=== PATIENT | female | born 1940 | race Caucasian/White ===

== ENCOUNTER 2017-07-01 18:01 | Emergency (ER) | payer MEDICARE, OTHER ==
[~2017-07-01] VITALS: Ht 167.6 cm; Wt 63.5 kg
[~2017-07-01 18:01] MED LIST: ATOR10TA; ENAL20TA70; ESOM40CA39; LEVO75TA50; METO25TA3; MULT-228; NORVASC
[2017-07-01 20:50] VITALS: BP 115/59
[2017-07-01] MEDS ORDERED: BACITRACIN TOP OINT 1 UD PKG TOP ONE (21:30)
== END 2017-07-01 23:12 | disposition home or self-care (01) ==
LOC: ER 18:01
DX: S02.2XXA Fracture of nasal bones, initial encounter for closed fracture (principal); S16.1XXA Strain of muscle, fascia and tendon at neck level, initial encounter; S60.221A Contusion of right hand, initial encounter; E78.5 Hyperlipidemia, unspecified; I10 Essential (primary) hypertension; Z88.8 Allergy status to other drugs, medicaments and biological substances; Z88.1 Allergy status to other antibiotic agents; W18.39XA Other fall on same level, initial encounter; Y93.89 Activity, other specified; Y92.098 Other place in other non-institutional residence as the place of occurrence of the external cause; Y99.8 Other external cause status
CPT/HCPCS: 70160; 70450; 72125; 73130

== ENCOUNTER 2019-04-01 21:38 | Emergency (ER) | payer OTHER ==
[~2019-04-01] VITALS: Ht 167.6 cm; Wt 68.0 kg
[~2019-04-01 21:38] MED LIST changes: +ENAL20TA; -ENAL20TA70; -METO25TA3; +METO25TA36
[2019-04-01] MEDS ORDERED: IBUPROFEN 600 MG TAB PO ONE (22:00)
[2019-04-01 23:27] VITALS: BP 102/34
[2019-04-04] MEDS ORDERED: AMLO10TA13 PO (10:14)
[2019-04-04] MEDS ORDERED: MULT1CAP25 PO (10:14)
[2019-04-04] MEDS ORDERED: CYAN1TAB14 PO (10:14)
[2019-04-04] MEDS ORDERED: ASPI-404 PO (10:14)
[2019-04-04] MEDS ORDERED: CITA-77 PO (10:14)
[2019-04-04] MEDS ORDERED: CALC-337 PO (10:14)
== END 2019-04-02 00:20 | disposition home or self-care (01) ==
LOC: ER 21:45
DX: S52.571A Other intraarticular fracture of lower end of right radius, initial encounter for closed fracture (principal); E78.5 Hyperlipidemia, unspecified; I10 Essential (primary) hypertension; Z88.2 Allergy status to sulfonamides; Z88.6 Allergy status to analgesic agent; Z79.899 Other long term (current) drug therapy; W19.XXXA Unspecified fall, initial encounter; Y93.89 Activity, other specified; Y92.098 Other place in other non-institutional residence as the place of occurrence of the external cause; Y99.8 Other external cause status
CPT/HCPCS: 29125; 73110

== ENCOUNTER 2019-04-07 05:56 | Day surgery (SDC) | payer OTHER ==
[2019-04-04 11:09] LABS: Basophils # (auto) 0 uL; Eosinophils # (auto) 0.2 uL; Lymphocytes # (auto) 1.5 uL; Mean Corpuscular Volume 102.2 fL (80.0-100.0); Monocytes # (auto) 1.1 uL
[2019-04-04 11:12] LABS: Basophils % (auto) 0.5 % (0.0-2.0); Eosinophils % (auto) 2.2 % (0.0-7.0); Hematocrit 44.3 % (36.0-46.0); Hemoglobin 14.9 g/dL (12.2-16.2); Lymphocytes % (auto) 19.8 % (10.0-50.0); Mean Corpuscular Hemoglobin 34.4 pg (28.0-32.0); Mean Corpuscular Hgb Conc. 33.7 g/dL (32.0-36.0); Monocytes % (auto) 15.4 % (0.0-12.0); Neutrophils # (auto) 4.7 uL; Neutrophils % (auto) 62.1 % (37.0-80.0); Platelet Count (auto) 166 10^3/uL (140-450); Red Blood Cells 4.33 10^6/uL (4.0-5.20); Red Cell Distribution Width 13.2 % (11.8-14.3); White Blood Cell 7.5 10^3/uL (4.4-10.8)
[2019-04-04 11:23] LABS: INR < 0.93 (0.9-1.15); Partial Thromboplastin Time 25.8 sec (23.64-32.05)
[2019-04-04 11:24] LABS: Potassium 4.2 mmol/L (3.5-5.1)
[2019-04-04 11:32] LABS: Albumin 3.8 g/dL (3.4-5.0); BUN/Creatinine Ratio 18.4; Bilirubin, Total 0.8 mg/dL (0.2-1.0); Calcium 9.9 mg/dL (8.5-10.1); Total Protein 7.5 g/dL (6.4-8.2)
[2019-04-05 08:55] LABS: Urine Bacteria NONE SEEN /hpf (None Seen); Urine Blood Negative /uL (Negative); Urine WBC 2 /hpf (0 - 5)
[~2019-04-07] VITALS: Ht 167.6 cm; Wt 68.0 kg
[~2019-04-07 05:56] MED LIST changes: +AMLO10TA13 PO; +ASPI-404 PO; +CALC-337 PO; +CITA-77 PO; +CYAN1TAB14 PO; -ESOM40CA39; -MULT-228; +MULT1CAP25 PO; -NORVASC
[2019-04-07] MEDS ORDERED: CLINDAMYCIN 600MG IV 50 ML IV ONE (06:46)
[2019-04-07] MEDS ORDERED: ePHEDrine SULFATE 50 MG/ML AMP IV PRN (07:30)
[2019-04-07] MEDS ORDERED: MIDAZOLAM HCL 1MG/1ML-2 ML VIAL IV PRN (07:30)
[2019-04-07] MEDS ORDERED: LABETALOL HCL 5 MG/ML 4ML SYRINGE IV PRN (07:30)
[2019-04-07] MEDS ORDERED: ONDANSETRON HCL 4 MG/2 ML VIAL IV PRN (07:30)
[2019-04-07] MEDS ORDERED: KETOROLAC TROMETH 30 MG/ML 1ML VIAL IV ONE (07:30)
[2019-04-07] MEDS ORDERED: MORPHINE SULFATE 4 MG/ML SYR/VIAL IV PRN (07:30)
[2019-04-07] MEDS ORDERED: MIDAZOLAM HCL 1MG/1ML-2 ML VIAL ONE (07:35)
[2019-04-07] MEDS ORDERED: fentaNYL CITRATE 100 MCG/2 ML VL ONE (07:35)
[2019-04-07] MEDS ORDERED: MEPERIDINE HCL (25 MG/ML) 1ML VIAL ONE (07:35)
[2019-04-07] MEDS ORDERED: PROPOFOL 10 MG/ML 20 ML IV ONE (07:43)
[2019-04-07] MEDS ORDERED: DexAMETHasone SOD PHOS 10MG/1ML VIAL INJ ONE (07:43)
[2019-04-07] MEDS ORDERED: KETOROLAC TROMETH 30 MG/ML 1ML VIAL ONE (07:59)
[2019-04-07] MEDS ORDERED: BACITRACIN TOP OINT 1 UD PKG TOP ONE (08:33)
[2019-04-07 09:51] VITALS: BP 125/41
== END 2019-04-07 10:03 | disposition home or self-care (01) ==
LOC: SUR 05:56
PROVIDERS: ATTEND Orthopaedic Surgery
DX: S52.531D Colles' fracture of right radius, subsequent encounter for closed fracture with routine healing (principal); S52.611D Displaced fracture of right ulna styloid process, subsequent encounter for closed fracture with routine healing; I10 Essential (primary) hypertension; E07.9 Disorder of thyroid, unspecified; Z90.710 Acquired absence of both cervix and uterus; Z88.2 Allergy status to sulfonamides; Z88.8 Allergy status to other drugs, medicaments and biological substances; Z79.899 Other long term (current) drug therapy; Z98.890 Other specified postprocedural states; Z79.82 Long term (current) use of aspirin; Z79.01 Long term (current) use of anticoagulants; X58.XXXD Exposure to other specified factors, subsequent encounter
CPT/HCPCS: 25607; 36415; 73100; 80053; 81001; 85025; 85610; 85730; C1713; J1100; J1885; J2175; J2250; J2704; J3010; J3490; 76000

== ENCOUNTER 2019-06-05 08:19 | Emergency (ER) | payer OTHER ==
[~2019-06-05] VITALS: Ht 170.2 cm; Wt 63.5 kg
[2019-06-05 09:03] VITALS: BP 120/59
[2019-06-05] MEDS ORDERED: FEXOFENADINE HCL 60 MG TAB PO ONE (10:00)
[2019-06-05] MEDS ORDERED: DexAMETHasone SOD PHOS 10MG/1ML VIAL INJ IM ONE (10:00)
== END 2019-06-05 10:44 | disposition home or self-care (01) ==
LOC: ER 08:23
DX: L23.9 Allergic contact dermatitis, unspecified cause (principal); E78.5 Hyperlipidemia, unspecified; I10 Essential (primary) hypertension; Z88.2 Allergy status to sulfonamides; Z88.8 Allergy status to other drugs, medicaments and biological substances; Z79.899 Other long term (current) drug therapy
CPT/HCPCS: 96372; 99283; J1100

== ENCOUNTER 2021-12-23 20:35 | Inpatient (IN) | payer OTHER ==
[~2021-12-23] VITALS: Ht 170.2 cm; Wt 77.0 kg
[~2021-12-23 20:35] MED LIST changes: +AMLO-496 PO; -AMLO10TA13 PO; -ASPI-404 PO; +ASPI-543 PO; -ENAL20TA; +ENAL20TA8; +LEV75T; -LEVO75TA50
[2021-12-23] MEDS ORDERED: ATROPINE SULF 1 MG/10ml SYR IV ONE (22:00)
[2021-12-23] MEDS ORDERED: ATROPINE SULF 0.5 MG/5ML SYR ONE (22:06)
[2021-12-23] MEDS ORDERED: ATROPINE SULFATE 1 MG/1 ML VIAL ONE (22:07)
[2021-12-23 22:30] LABS: Basophils # (auto) 0 10 ^3/uL (0-0.2); Basophils % (auto) 0.4 % (0.0-2.0); Eosinophils # (auto) 0.1 10 ^3/uL (0-0.8); Eosinophils % (auto) 1.2 % (0.0-7.0); Hematocrit 44.3 % (36.0-46.0); Hemoglobin 15.1 g/dL (12.2-16.2); Lymphocytes # (auto) 1.5 10 ^3/uL (0.4-5.4); Lymphocytes % (auto) 15.4 % (10.0-50.0); Mean Corpuscular Volume 91.2 fL (80.0-100.0); Monocytes # (auto) 1.3 10 ^3/uL (0-1.3); Monocytes % (auto) 13.7 % (0.0-12.0); Neutrophils # (auto) 6.8 10 ^3/uL (1.6-8.6); Neutrophils % (auto) 69.3 % (37.0-80.0); Red Blood Cells 4.86 10^6/uL (4.0-5.20); Red Cell Distribution Width 14.3 % (11.8-14.3); White Blood Cell 9.8 10^3/uL (4.4-10.8)
[2021-12-23 22:48] LABS: Albumin 3.2 g/dL (3.4-5.0); BUN/Creatinine Ratio 20.4; Calcium 9.4 mg/dL (8.5-10.1); Magnesium 2.2 mg/dL (1.6-2.6)
[2021-12-23 22:50] LABS: Bilirubin, Total 0.4 mg/dL (0.2-1.0)
[2021-12-24] MEDS ORDERED: ATROPINE SULF 1 MG/10ml SYR IV ONE ×2 (02:45→07:15)
[2021-12-24] MEDS ORDERED: ATROPINE SULFATE 1 MG/1 ML VIAL ONE (02:59)
[2021-12-24 05:03] LABS: Urine Bacteria NONE SEEN /hpf (None Seen); Urine Blood Negative /uL (Negative); Urine Hyaline Cast FEW /lpf (0 - 2); Urine Specific Gravity 1.019 (1.001-1.035); Urine WBC <1 /hpf (0 - 5)
[2021-12-24] MEDS ORDERED: ACETAMINOPHEN 325 MG TAB PO PRN (06:00)
[2021-12-24] MEDS ORDERED: NITROGLYCERIN 0.4 MG SL TAB SL PRN (06:00)
[2021-12-24] MEDS ORDERED: ONDANSETRON HCL 4 MG/2 ML VIAL IV PRN (06:00)
[2021-12-24] MEDS ORDERED: HYDROcodone-ACET 5/325MG TAB PO PRN (06:00)
[2021-12-24] MEDS ORDERED: MORPHINE SULFATE INJ 2 MG/ml SYRG IV PRN (06:00)
[2021-12-24] MEDS ORDERED: GLUCAGON HYDROCHLORIDE (RDNA) 1 MG VIAL IV ONE (06:00)
[2021-12-24] MEDS: LEVOTHYROXINE SODIUM 88 MCG TAB PO SCH (08:30)
[2021-12-24] MEDS: PANTOPRAZOLE 40 MG TAB PO SCH (11:52)
[2021-12-24] MEDS: amLODIPine BESYLATE 5 MG TAB PO SCH (11:57)
[2021-12-24] MEDS: ENOXAPARIN SOD 40 MG/0.4 ML SYRINGE SC SCH (11:58)
[2021-12-24] MEDS: LORazepam 2MG/ML-1ML VIAL IV PRN ×2 (16:51→21:45)
[2021-12-24] MEDS: ATORVASTATIN 20 MG TAB PO SCH (22:00)
[2021-12-25 04:56] LABS: Basophils # (auto) 0 10 ^3/uL (0-0.2); Basophils % (auto) 0.6 % (0.0-2.0); Eosinophils # (auto) 0.2 10 ^3/uL (0-0.8); Eosinophils % (auto) 2.3 % (0.0-7.0); Hematocrit 42.9 % (36.0-46.0); Hemoglobin 14.3 g/dL (12.2-16.2); Lymphocytes # (auto) 1.8 10 ^3/uL (0.4-5.4); Lymphocytes % (auto) 22.8 % (10.0-50.0); Mean Corpuscular Hemoglobin 31.1 pg (28.0-32.0); Mean Corpuscular Hgb Conc. 33.5 g/dL (32.0-36.0); Mean Corpuscular Volume 92.8 fL (80.0-100.0); Monocytes # (auto) 1.2 10 ^3/uL (0-1.3); Monocytes % (auto) 14.9 % (0.0-12.0); Neutrophils # (auto) 4.7 10 ^3/uL (1.6-8.6); Neutrophils % (auto) 59.4 % (37.0-80.0); Nucleated Red Blood Cells % 0.1 %; Red Blood Cells 4.62 10^6/uL (4.0-5.20); Red Cell Distribution Width 14.5 % (11.8-14.3)
[2021-12-25 05:33] LABS: Albumin 3.3 g/dL (3.4-5.0); BUN/Creatinine Ratio 17.9; Calcium 9.5 mg/dL (8.5-10.1); Potassium 4.6 mmol/L (3.5-5.1)
[2021-12-25] MEDS: LEVOTHYROXINE SODIUM 88 MCG TAB PO SCH (07:00)
[2021-12-25 07:04] LABS: Total Protein 6.7 g/dL (6.4-8.2)
[2021-12-25] MEDS: amLODIPine BESYLATE 5 MG TAB PO SCH (10:00)
[2021-12-25] MEDS: PANTOPRAZOLE 40 MG TAB PO SCH (10:15)
[2021-12-25] MEDS: ENOXAPARIN SOD 40 MG/0.4 ML SYRINGE SC SCH (10:16)
[2021-12-25 12:07] LABS: INR 0.99 (0.9-1.15); Partial Thromboplastin Time 29.9 sec (23.6-33.0)
[2021-12-25] MEDS ORDERED: LIDOCAINE 2%HCL (LOCAL ANESTH.) INJ 10ml MDV ONE (15:43)
[2021-12-25] MEDS ORDERED: VANCOMYCIN HCL 1000 MG VL ONE (15:44)
[2021-12-25] MEDS ORDERED: fentaNYL CITRATE 100 MCG/2 ML VL ONE (15:45)
[2021-12-25] MEDS ORDERED: MIDAZOLAM HCL 2MG/2ML 2ml VIAL (1mg/ml) ONE (15:45)
[2021-12-25] MEDS ORDERED: VANCOMYCIN 1GM/250ML 250 ML IV ONE (15:46)
[2021-12-25 22:00] VITALS: BP 179/70
[2021-12-25] MEDS: ATORVASTATIN 20 MG TAB PO SCH (22:41)
[2021-12-25] MEDS: MORPHINE SULFATE INJ 2 MG/ml SYRG IV PRN (22:42)
[2021-12-26] MEDS: LEVOTHYROXINE SODIUM 88 MCG TAB PO SCH (05:45)
[2021-12-26] MEDS: VANCOMYCIN 1GM/250ML 250 ML IV SCH ×2 (05:45→09:39)
[2021-12-26 06:46] VITALS: BP 102/51
[2021-12-26 08:00] VITALS: BP 158/69
[2021-12-26 09:00] VITALS: BP 158/69
[2021-12-26] MEDS: amLODIPine BESYLATE 5 MG TAB PO SCH (09:40)
[2021-12-26] MEDS ORDERED: TRAM-711 PO (10:30)
[2021-12-26] MEDS: LORazepam 2MG/ML-1ML VIAL IV PRN (11:27)
[2021-12-26] MEDS: MORPHINE SULFATE INJ 2 MG/ml SYRG IV PRN (11:27)
[2021-12-26 12:00] VITALS: BP 128/56
[2021-12-26 13:00] VITALS: BP 128/56
[2021-12-26 14:42] VITALS: BP 128/56
[2021-12-26] MEDS ORDERED: ALPR1TAB2 PO (14:44)
== END 2021-12-26 16:47 | disposition home or self-care (01) | DRG 242 ==
LOC: EDBD 20:35 → ER 20:39 → TELE 12-24 05:48 → TELE-WESTW 12-25 12:36
PROVIDERS: ADMIT Nurse Practitioner; ATTEND Family Medicine
PROC: 0JH606Z Insertion of Pacemaker, Dual Chamber into Chest Subcutaneous Tissue and Fascia, Open Approach (ICD-10-PCS; principal; 2021-12-25)
PROC: 02HK3JZ Insertion of Pacemaker Lead into Right Ventricle, Percutaneous Approach (ICD-10-PCS; 2021-12-25)
PROC: 02H63JZ Insertion of Pacemaker Lead into Right Atrium, Percutaneous Approach (ICD-10-PCS; 2021-12-25)
DX: R00.1 Bradycardia, unspecified (principal); I50.33 Acute on chronic diastolic (congestive) heart failure; S22.32XA Fracture of one rib, left side, initial encounter for closed fracture; S09.90XA Unspecified injury of head, initial encounter; I10 Essential (primary) hypertension; Z20.822 Contact with and (suspected) exposure to COVID-19; W01.0XXA Fall on same level from slipping, tripping and stumbling without subsequent striking against object, initial encounter; E03.9 Hypothyroidism, unspecified; E78.00 Pure hypercholesterolemia, unspecified; Z88.1 Allergy status to other antibiotic agents; Z88.2 Allergy status to sulfonamides; Z88.8 Allergy status to other drugs, medicaments and biological substances; Y93.89 Activity, other specified; Y92.89 Other specified places as the place of occurrence of the external cause; Y99.8 Other external cause status
CPT/HCPCS: 33208; 36415; 70450; 71045; 71250; 72125; 72128; 72131; 80053; 81001; 83735; 83880; 84443; 84484; 85025; 85610; 85730; 93005; 93306; 99152; 99153; 99291; C1785; G0378; J0461; J2001; J2250

== ENCOUNTER → 2022-02-16 | Outpatient (CLI) | payer OTHER ==
[~2022-02-16] VITALS: Ht 170.2 cm; Wt 68.0 kg
[~2022-02-16] MED LIST changes: +ADENOSINE 57 MG in GIVE UN-DILUTED 0 ML IV ONE; +ADENOSINE 90 MG/30 ML INJ IV ONE; +ALPR1TAB2 PO; +TRAM-711 PO
== END | disposition home or self-care (01) ==
LOC: Rad HDHVI 08:06
PROVIDERS: ATTEND Internal Medicine Cardiovascular Disease
DX: R00.1 Bradycardia, unspecified (principal); I47.2 Ventricular tachycardia; R00.2 Palpitations; R55 Syncope and collapse; E78.5 Hyperlipidemia, unspecified; I10 Essential (primary) hypertension; Z95.0 Presence of cardiac pacemaker
CPT/HCPCS: 78452; 93005; 96374; 96375; A9500; J0153